=== PATIENT | female | born 2005 | race Two or more races ===

== ENCOUNTER 2025-08-22 19:41 | Inpatient (IN) | payer MEDICAID, OTHER ==
[~2025-08-22] VITALS: Ht 147.3 cm; Wt 60.6 kg
[2025-08-22] MEDS: ONDANSETRON HCL 4 MG/2 ML VIAL IV ONE (20:34)
[2025-08-22 20:36] LABS: Base Excess -10.0 mmol/L (-2.0-3.0)
[2025-08-22] MEDS: SODIUM CHLORIDE 0.9% 1,000 ML IV ONE ×2 (20:39→22:56)
[2025-08-22 20:57] LABS: Hematocrit 49.7 % (36.0-46.0); Hemoglobin 16.3 g/dL (12.2-16.2); Mean Corpuscular Hemoglobin 28.9 pg (28.0-32.0); Mean Corpuscular Volume 88.2 fL (80.0-100.0); Nucleated Red Blood Cells % 0.1 %
[2025-08-22 21:44] VITALS: PULSE 141; RESP 16; O2SAT 98
[2025-08-22 22:13] LABS: Anion Gap 18 (5-15); BUN/Creatinine Ratio 11.1 (10.0-20.0); Calcium 9.8 mg/dL (8.7-10.4); Chloride 106 mmol/L (98-107); Magnesium 1.9 mg/dL (1.6-2.6); Potassium 4.2 mmol/L (3.5-5.1); Sodium 137 mmol/L (136-145)
[2025-08-22 22:18] LABS: Urine Budding Yeast OCCASIONAL /hpf (None Seen); Urine Protein, UAD TRACE (Negative)
[2025-08-22 22:18] LABS: Alanine Aminotransferase < 9 U/L (7-40); Albumin 5.0 g/dL (3.2-4.8); Alkaline Phosphatase 125 U/L (46-116); Bilirubin, Total 0.2 mg/dL (0.2-1.0); Blood Urea Nitrogen 8 mg/dL (9-23); Carbon Dioxide 13 mmol/L (20-31); Glucose 345 mg/dL (74-106); Total Protein 9.1 g/dL (5.7-8.2)
[2025-08-22] MEDS: SODIUM CHLORIDE 0.9% 1,000 ML IV SCH (22:30)
[2025-08-22] MEDS ORDERED: DEXTROSE (50%) 50ML SYRG IV PRN (22:30)
--- NOTE | 2025-08-22 22:30 | ED.PDOC ---
History of Present Illness HPI Comments 19 F with history of insulin dependent DM presents via EMS with N/V elevated blood sugars. She is on SSI. She reports CP. She reports she has not been completely compliant with insulin. BGC 310 with EMS. REVIEW OF SYSTEMS: General: No fever, no chills, or fatigue HEENT: No sore throat, no earache, no congestion, no neck pain. Cardiac: + chest pain. No palpitations. Lungs: No shortness of breath, no cough. GI: + nausea, + vomiting, no diarrhea, no constipation, + abdominal pain : No dysuria, frequency, or urgency. No hematuria. Musculoskeletal: No joint pain , no joint swelling, no extremity edema. Skin: No rash, no itching. Neuro: No headache, no dizziness, no weakness PHYSICAL EXAM: General: Awake, alert , ill-appearing Skin: Skin in warm, dry and intact. Appropriate color for ethnicity. HEENT: The head is normocephalic and atraumatic. Conjunctivae are clear without exudates or hemorrhage. Sclera is non-icteric. EOM are intact. No signs of nystagmus. Eyelids are normal in appearance without swelling or lesions. Oral mucosa is pink and moist Neck: The neck is supple with normal range of motion. No JVD. Cardiac: Heart rate and rhythm are normal. No murmurs, gallops, or rubs are auscultated. Respiratory: No signs of respiratory distress. Lung sounds are clear in all lobes bilaterally without rales, rhonchi, or wheezes. Abdominal: Abdomen is soft, generally-tender, without distention, guarding or rigidity. Bowel sounds are present and normoactive in all four quadrants. Extremities: Upper and lower extremities are atraumatic in appearance without deformity or edema. Neurological: The patient is awake, alert and oriented to person, place, and time with normal speech. Speech is clear. There is no facial asymmetry. Chief Complaint: Hyperglycemia Time Seen by MD: 19:48 Allergies: Coded Allergies: NO KNOWN ALLERGIES (Unverified , 08/22/25) Mode of Arrival: EMS Was a procedure done? Was a procedure done?: No EKG EKG : Comments Sinus tachycardia, rate 139, nonspecific ST changes. No STEMI. Differential Dx Considerations may include: DKA, hyperglycemia, HHS, appendicitis, biliary disease, diverticulitis, gastritis, gastroenteritis, hepatitis, hernia, inflammatory bowel disease, pancr eatitis, peptic ulcer disease, urinary tract infection, ureteral colic, constipation, GERD, irritable syndrome, abdominal wall pain, nonspecific abdominal pain, nephrolithiasis. X-Ray, Labs, Meds, VS Vital Signs Date Time Temp Pulse Resp B/P (MAP) Pulse Ox O2 Delivery O2 Flow Rate FiO2 08/22/25 23:00 132 17 151/98 (115) 97 08/22/25 22:52 134 14 150/103 08/22/25 21:44 141 16 98 Room Air* 0 21 08/22/25 21:01 141 16 141/98 (112) 98 08/22/25 19:54 98.3 120 18 131/95 100 98.3 08/22/25 19:44 139 Lab Test 08/22/25 21:35 08/22/25 21:14 08/22/25 20:32 08/22/25 20:31 Range/Units Sodium Level 137 136-145 mmol/L Potassium Level 4.2 3.5-5.1 mmol/L Chloride Level 106 98-107 mmol/L Carbon Dioxide Level 13 L 20-31 mmol/L Anion Gap 18 H 5-15 Blood Urea Nitrogen 8 L 9-23 mg/dL Creatinine 0.72 0.550-1.02 mg/dL Glomerular Filtration Rate Calc 123 >90 mL/min BUN/Creatinine Ratio 11.1 10.0-20.0 Serum Glucose 345 H 74-106 mg/dL Calcium Level 9.8 8.7-10.4 mg/dL Magnesium Level 1.9 1.6-2.6 mg/dL Total Bilirubin 0.2 0.2-1.0 mg/dL Aspartate Amino Transferase (AST) 12 L 13-40 U/L Alanine Aminotransferase (ALT) < 9 7-40 U/L Alkaline Phosphatase 125 H 46-116 U/L Total Protein 9.1 H 5.7-8.2 g/dL Albumin 5.0 H 3.2-4.8 g/dL Urine Color Light-yellow Yellow Urine Clarity Clear Clear Urine pH 5.0 5.0-9.0 Urine Specific [place] 1.034 1.001-1.035 Urine Protein Trace H Negative Urine Ketones 4+ H Negative Urine Blood Negative Negative /uL Urine Nitrite Negative Negative Urine Bilirubin Negative Negative Urine Urobilinogen Normal Negative mg/dL Urine Leukocyte Esterase Negative Negative /uL Urine RBC 2 0 - 4 /hpf Urine Microscopic WBC 1 0-5 /HPF Urine Squamous Epithelial Cells Mod <5 /hpf Urine Bacteria None seen None Seen /hpf Urine Mucus Few None Seen Urine Yeast (Budding) Occasional None Seen /hpf Urine Glucose 4+ H Normal mg/dL Urine Test Negative Negative Blood Gas Specimen Type Arterial Blood Gas Sample Site Right brachial Blood Gas Patient Temperature 37.0 Arterial Blood Date Drawn [id number] Arterial Blood pH 7.321 L 7.350-7.450 Arterial Blood Partial Pressure CO2 28.5 L 32.0-45.0 mmHg Arterial Blood Partial Pressure O2 92.1 83.0-108.0 mmHg Arterial Blood HCO3 14.4 L 21.0-28.0 mmol/L Arterial Blood Oxygen Saturation 96.5 94.0-98.0 % Arterial Blood Base Excess -10.0 L -2.0-3.0 mmol/L Arterial Blood Oxyhemoglobin 95.2 94.0-98.0 % Arterial Blood Carboxyhemoglobin 0.6 0.5-1.5 % Arterial Blood Methemoglobin 0.7 0.0-1.5 % Luke Test N/a Blood Gas Total Hemoglobin 15.80 12.0-16.0 g/dL Blood Gas Modality Room air FiO2 % 21.0 White Blood Count 8.2 4.4-10.8 10^3/uL Red Blood Count 5.64 H 4.0-5.20 10^6/uL Hemoglobin 16.3 H 12.2-16.2 g/dL Hematocrit 49.7 H 36.0-46.0 % Mean Corpuscular Volume 88.2 80.0-100.0 fL Mean Corpuscular Hemoglobin 28.9 28.0-32.0 pg Mean Corpuscular Hemoglobin Concent 32.7 32.0-36.0 g/dL Red Cell Distribution Width 13.4 11.8-14.3 % Platelet Count 426 140-450 10^3/uL Mean Platelet Volume 8.7 6.9-10.8 fL Neutrophils (%) (Auto) 78.9 37.0-80.0 % Lymphocytes (%) (Auto) 17.1 10.0-50.0 % Monocytes (%) (Auto) 3.5 0.0-12.0 % Eosinophils (%) (Auto) 0.1 0.0-7.0 % Basophils (%) (Auto) 0.4 0.0-2.0 % Neutrophils # (Auto) 6.4 1.6-8.6 10 ^3/uL Lymphocytes # (Auto) 1.4 0.4-5.4 10 ^3/uL Monocytes # (Auto) 0.3 0-1.3 10 ^3/uL Eosinophils # (Auto) 0 0-0.8 10 ^3/uL Basophils # (Auto) 0 0-0.2 10 ^3/uL Nucleated Red Blood Cells 0.1 % Beta-Hydroxybutyric Acid Pending Current Medications Medications (Trade) Dose Ordered Sig/Kashif Route Start Time Stop Time Status Last Admin Ondansetron HCl (Zofran) 4 mg ONCE ONCE IV 08/22/25 20:15 08/22/25 20:17 DC 08/22/25 20:34 Sodium Chloride 1,000 ml @ 1,000 mls/hr Q1H ONCE IV 08/22/25 20:15 08/22/25 21:14 DC 08/22/25 20:39 Sodium Chloride 1,000 ml @ 1,000 mls/hr Q1H ONCE IV 08/22/25 22:00 08/22/25 22:59 DC 08/22/25 22:56 Hydromorphone HCl (Dilaudid Injection) 0.5 mg ONCE ONCE IV 08/22/25 22:00 08/22/25 22:01 DC 08/22/25 22:52 Sodium Chloride 1,000 ml @ 500 mls/hr Q2H IV 08/22/25 22:30 08/23/25 02:29 08/23/25 00:36 Insulin Human (Reg)/Sodium Chloride 100 ml @ 0.5 mls/hr Q24H IV 08/22/25 22:30 08/22/25 22:53 Diagnostic Test (Pha) (Accu-Chek Comfort Curve T) 1 strip Q90MIN 08/22/25 22:30 08/23/25 00:07 Insulin Glargine (Lantus) 15 units ONCE ONCE SC 08/22/25 22:30 08/22/25 22:38 DC 08/22/25 22:53 Time of 1ST Reevaluation: 22:29 Reevaluation 1ST: Unchanged Patient Education/Counseling: Need For Follow Up Family Education/Counseling: No Family Present SEPSIS Sepsis Screen Date sepsis recognized/suspect: Aug 22, 2025 Time Sepsis recognized/suspect: 1944 Recent Procedure: No On Antibiotic Therapy: No Respiratory Rate >20: No Heart Rate >90: Yes Temp<36 C (96.8 F) or >38.3 C: No SBP <90 or MAP <65 mmHG: No New Acute Mental Status Change: No Is the patient on CPAP, BIPAP,: No Physician Orders Electrocardigram (08/22/25 19:49) Abg W/ Co-Ox (08/22/25 20:15) Saline Lock (08/22/25 20:15) Beta-Hydroxybutyrate (08/22/25 20:15) Insulin Drip Protocol (08/22/25 ) Sodium Chloride 0.9% (08/22/25 22:30) Sodium Chloride 0.9% (08/23/25 02:30) Sodium Chloride 0.9% (08/23/25 04:30) Insulin Drip 100 Unit/100ml (Myxredlin 1 (08/22/25 22:30) Dextrose 50% Syringe (08/22/25 22:30) Glucose Blood (Accu-Chek Comfort Curve T (08/22/25 22:30) Basic Metabolic Panel (08/23/25 10:27) Basic Metabolic Panel (08/23/25 16:27) Neurological Assessment (08/22/25 22:27) Vs/Hemodynamics .PER UNIT PROTOCOL (08/22/25 22:27) Vital Signs Date Time Temp Pulse Resp B/P (MAP) Pulse Ox O2 Delivery O2 Flow Rate FiO2 08/22/25 23:00 132 17 151/98 (115) 97 08/22/25 22:52 134 14 150/103 08/22/25 21:44 141 16 98 Room Air* 0 21 08/22/25 21:01 141 16 141/98 (112) 98 08/22/25 19:54 98.3 120 18 131/95 100 98.3 08/22/25 19:44 139 Laboratory Tests Test 08/22/25 20:31 White Blood Count 8.2 10^3/uL (4.4-10.8) Medications Medications Dose Ordered Sig/Kashif Route Start Time Stop Time Status Last Admin Dose Admin Diagnostic Test (Pha) 1 strip Q90MIN 08/22/25 22:30 08/23/25 00:07 Hydromorphone HCl 0.5 mg ONCE ONCE IV 08/22/25 22:00 08/22/25 22:01 DC 08/22/25 22:52 Insulin Glargine 15 units ONCE ONCE SC 08/22/25 22:30 08/22/25 22:38 DC 08/22/25 22:53 Insulin Human (Reg)/Sodium Chloride 100 ml @ 0.5 mls/hr Q24H IV 08/22/25 22:30 08/22/25 22:53 Ondansetron HCl 4 mg ONCE ONCE IV 08/22/25 20:15 08/22/25 20:17 DC 08/22/25 20:34 Sodium Chloride 1,000 ml @ 500 mls/hr Q2H IV 08/22/25 22:30 08/23/25 02:29 08/23/25 00:36 Sodium Chloride 1,000 ml @ 1,000 mls/hr Q1H ONCE IV 08/22/25 20:15 08/22/25 21:14 DC 08/22/25 20:39 Sodium Chloride 1,000 ml @ 1,000 mls/hr Q1H ONCE IV 08/22/25 22:00 08/22/25 22:59 DC 08/22/25 22:56 Departure 1 Departure Time of Disposition: 22:30 Impression: Primary Impression: DKA (diabetic ketoacidosis) Disposition: ADMITTED INPATIENT Condition: Serious Comments MDM: 19-year-old female with DKA. Patient admitted to hospitalist service for further treatment, evaluation and monitoring. Extensive evaluation was performed in attempt to identify or rule out: (See differential diagnosis section) The following tests were ordered, and results were reviewed by me and discussed with patient: (See diagnostic results section) The following test were independently interpreted by me: N/A I reviewed and agreed with the following test results read by other providers: N/A I reviewed the following notes from the pt's past medical encounters: N/A Additional information was gathered from interviewing the following independent historians: EMS personnel Addressed an acute or chronic illness that poses a threat to life or bodily function: DKA Decision regarding hospitalization or escalation of hospital level of care: Risk and benefits of admission for further treatment of patient's condition was considered. Due to patient's current clinical condition, high risk of decline and poor outcome if discharged and need for further inpatient management and monitoring, patient will be admitted to the hospital. Drug therapy requiring intensive monitoring for toxicity: IV insulin Parenteral controlled substances: IV hydromorphone Critical Care Note Critical Care Time?: Yes (35 min-critical care time only) Critical care comment: Due to a high probability of clinically significant, life threatening deterioration, the patient required my highest level of preparedness to intervene emergently and I personally spent this critical care time directly and personally managing the patient. This critical care time included obtaining a history; examining the patient; pulse oximetry; ordering and review of studies; arranging urgent treatment with development of a management plan; evaluation of patient's response to treatment; frequent reassessment; and, discussions with other providers. This critical care time was performed to assess and manage the high probability of imminent, life-threatening deterioration that could result in multi-organ failure. It was exclusive of separately billable procedures and treating other patients and teaching time. Please see my other sections and the rest of the note for further information on patient assessment and treatment. Stability Stability form required: No Heart Score Heart Score: Heart Score Response (Comments) Value History N/A 0 EKG N/A 0 Age N/A 0 Risk Factors N/A 0 Troponin N/A 0 Total 0 LIAM ARAUZ MD Aug 22, 2025 22:30
[2025-08-22] MEDS: ACCU-CHEK COMFORT CURVE STRIP VI SCH (22:50)
[2025-08-22] MEDS: HYDROmorphone HCL 2 MG/ML VL/or syr IV ONE (22:52)
[2025-08-22] MEDS: INSULIN DRIP 100 UNIT/100ML 100 ML IV SCH (22:53)
[2025-08-22] MEDS: INSULIN LANTUS (GLARGINE) 1 /0.01ml (100units/ml) SC ONE (22:53)
[2025-08-23] MEDS ORDERED: MORPHINE SULFATE INJ 2 MG/ml SYRG IV PRN
[2025-08-23] MEDS ORDERED: NITROGLYCERIN 0.4 MG SL TAB SL PRN
[2025-08-23] MEDS: KETOROLAC TROMETH 30 MG/ML 1ML VIAL IV PRN ×2 (01:59→13:39)
[2025-08-23] MEDS: ONDANSETRON HCL 4 MG/2 ML VIAL IV PRN (02:00)
[2025-08-23] MEDS: SODIUM CHLORIDE 0.9% 1,000 ML IV SCH ×3 (02:30→14:36)
--- NOTE | 2025-08-23 04:07 | DVHHP2 ---
History of Present Illness Reason for Visit: Nausea and vomiting History of Present Illness 19-year-old female presents for evaluation of nausea and vomiting. Patient endorses a one day history of nausea and vomiting. Currently denies abdominal pain. She states her blood sugar has been running high in the 300s. She reports being compliant with her insulin regimen. No fever or chills. No cardiac or respiratory complaints. Past Medical History Diabetes mellitus Past Surgical History Denies Family History Noncontributory Smoke: No ALCOHOL: none Drugs: None Lives: with Family Review of Systems Review of Systems Review of systems are currently negative otherwise addressed in HPI. Allergies: Coded Allergies: NO KNOWN ALLERGIES (Unverified , 08/22/25) Medications Current Medications Medications Dose Ordered Sig/Kashif Route Start Time Stop Time Status Last Admin Dose Admin Sodium Chloride 1,000 ml @ 250 mls/hr Q4H IV 08/23/25 02:30 08/23/25 04:29 08/23/25 02:30 250 MLS/HR Sodium Chloride 1,000 ml @ 150 mls/hr Q6H40M IV 08/23/25 04:30 Insulin Human (Reg)/Sodium Chloride 100 ml @ 0.5 mls/hr Q24H IV 08/22/25 22:30 08/22/25 22:53 4 MLS/HR Dextrose 50 ml UD PRN IV 08/22/25 22:30 Diagnostic Test (Pha) 1 strip Q90MIN 08/22/25 22:30 08/23/25 03:06 1 STRIP Ondansetron HCl 4 mg Q4HP PRN IV 08/23/25 00:00 08/23/25 02:00 4 MG Nitroglycerin 0.4 mg Q5MINP PRN SL 08/23/25 00:00 Morphine Sulfate 2 mg Q30M PRN IV 08/23/25 00:00 Ketorolac Tromethamine 15 mg Q6HPRN PRN IV 08/23/25 00:00 08/28/25 00:00 08/23/25 01:59 15 MG Exam Vital Signs Vital Signs Date Time Temp Pulse Resp B/P (MAP) Pulse Ox O2 Delivery O2 Flow Rate FiO2 08/23/25 03:00 138 15 134/90 (105) 95 08/22/25 21:44 Room Air* 0 21 08/22/25 19:54 98.3 98.3 Exam Gen: 19-year-old female in mild distress Skin: Warm, dry, normal color and texture, no rash. HEENT: Normocephalic atraumatic, mucous membranes moist and pink. Neck: Cervical and supraclavicular nodes normal without enlargement, trachea is midline, thyroid gland is normal without masses. Pulmonary: Clear to auscultation and percussion bilaterally. Cardiac: Regular rate and rhythm. No murmur Abdomen: Soft, nontender, nondistended, bowel sounds present all 4 quadrants, no guarding, no rigidity, no organomegaly. Extremities: No cyanosis, clubbing, no edema Neuro: Cranial nerves II through XII grossly intact, normal affect and speech, no focal motor deficits. Labs/Xrays Labs Test 08/23/25 00:07 08/22/25 21:35 08/22/25 21:14 08/22/25 20:32 Range/Units Lactic Acid Level 0.5 0.4-2.0 mmol/L Sodium Level 137 136-145 mmol/L Potassium Level 4.2 3.5-5.1 mmol/L Chloride Level 106 98-107 mmol/L Carbon Dioxide Level 13 L 20-31 mmol/L Anion Gap 18 H 5-15 Blood Urea Nitrogen 8 L 9-23 mg/dL Creatinine 0.72 0.550-1.02 mg/dL Glomerular Filtration Rate Calc 123 >90 mL/min BUN/Creatinine Ratio 11.1 10.0-20.0 Serum Glucose 345 H 74-106 mg/dL Calcium Level 9.8 8.7-10.4 mg/dL Magnesium Level 1.9 1.6-2.6 mg/dL Total Bilirubin 0.2 0.2-1.0 mg/dL Aspartate Amino Transferase (AST) 12 L 13-40 U/L Alanine Aminotransferase (ALT) < 9 7-40 U/L Alkaline Phosphatase 125 H 46-116 U/L Total Protein 9.1 H 5.7-8.2 g/dL Albumin 5.0 H 3.2-4.8 g/dL Urine Color Light-yellow Yellow Urine Clarity Clear Clear Urine pH 5.0 5.0-9.0 Urine Specific [place] 1.034 1.001-1.035 Urine Protein Trace H Negative Urine Ketones 4+ H Negative Urine Blood Negative Negative /uL Urine Nitrite Negative Negative Urine Bilirubin Negative Negative Urine Urobilinogen Normal Negative mg/dL Urine Leukocyte Esterase Negative Negative /uL Urine RBC 2 0 - 4 /hpf Urine Microscopic WBC 1 0-5 /HPF Urine Squamous Epithelial Cells Mod <5 /hpf Urine Bacteria None seen None Seen /hpf Urine Mucus Few None Seen Urine Yeast (Budding) Occasional None Seen /hpf Urine Glucose 4+ H Normal mg/dL Urine Test Negative Negative Blood Gas Specimen Type Arterial Blood Gas Sample Site Right brachial Blood Gas Patient Temperature 37.0 Arterial Blood Date Drawn [id number] Arterial Blood pH 7.321 L 7.350-7.450 Arterial Blood Partial Pressure CO2 28.5 L 32.0-45.0 mmHg Arterial Blood Partial Pressure O2 92.1 83.0-108.0 mmHg Arterial Blood HCO3 14.4 L 21.0-28.0 mmol/L Arterial Blood Oxygen Saturation 96.5 94.0-98.0 % Arterial Blood Base Excess -10.0 L -2.0-3.0 mmol/L Arterial Blood Oxyhemoglobin 95.2 94.0-98.0 % Arterial Blood Carboxyhemoglobin 0.6 0.5-1.5 % Arterial Blood Methemoglobin 0.7 0.0-1.5 % Luke Test N/a Blood Gas Total Hemoglobin 15.80 12.0-16.0 g/dL Blood Gas Modality Room air FiO2 % 21.0 Test 08/22/25 20:31 Range/Units White Blood Count 8.2 4.4-10.8 10^3/uL Red Blood Count 5.64 H 4.0-5.20 10^6/uL Hemoglobin 16.3 H 12.2-16.2 g/dL Hematocrit 49.7 H 36.0-46.0 % Mean Corpuscular Volume 88.2 80.0-100.0 fL Mean Corpuscular Hemoglobin 28.9 28.0-32.0 pg Mean Corpuscular Hemoglobin Concent 32.7 32.0-36.0 g/dL Red Cell Distribution Width 13.4 11.8-14.3 % Platelet Count 426 140-450 10^3/uL Mean Platelet Volume 8.7 6.9-10.8 fL Neutrophils (%) (Auto) 78.9 37.0-80.0 % Lymphocytes (%) (Auto) 17.1 10.0-50.0 % Monocytes (%) (Auto) 3.5 0.0-12.0 % Eosinophils (%) (Auto) 0.1 0.0-7.0 % Basophils (%) (Auto) 0.4 0.0-2.0 % Neutrophils # (Auto) 6.4 1.6-8.6 10 ^3/uL Lymphocytes # (Auto) 1.4 0.4-5.4 10 ^3/uL Monocytes # (Auto) 0.3 0-1.3 10 ^3/uL Eosinophils # (Auto) 0 0-0.8 10 ^3/uL Basophils # (Auto) 0 0-0.2 10 ^3/uL Nucleated Red Blood Cells 0.1 % SEPSIS Sepsis Screen Date sepsis recognized/suspect: Aug 23, 2025 Time Sepsis recognized/suspect: 148 Recent Procedure: No On Antibiotic Therapy: No Respiratory Rate >20: No Heart Rate >90: Yes Temp<36 C (96.8 F) or >38.3 C: No SBP <90 or MAP <65 mmHG: No New Acute Mental Status Change: No Is the patient on CPAP, BIPAP,: No Physician Orders Abg W/ Co-Ox (08/22/25 20:15) Saline Lock (08/22/25 20:15) Beta-Hydroxybutyrate (08/22/25 20:15) Insulin Drip Protocol (08/22/25 ) Sodium Chloride 0.9% (08/23/25 02:30) Sodium Chloride 0.9% (08/23/25 04:30) Insulin Drip 100 Unit/100ml (Myxredlin 1 (08/22/25 22:30) Dextrose 50% Syringe (08/22/25 22:30) Glucose Blood (Accu-Chek Comfort Curve T (08/22/25 22:30) Basic Metabolic Panel (08/23/25 10:27) Basic Metabolic Panel (08/23/25 16:27) Neurological Assessment (08/22/25 22:27) Vs/Hemodynamics .PER UNIT PROTOCOL (08/22/25 22:27) Admit (08/22/25 23:56) Ondansetron Hcl (Zofran) (08/23/25 00:00) Complete Blood Count (08/23/25 04:00) Comprehensive Metabolic Panel (08/23/25 04:00) Npo (Nothing By Mouth) Diet (08/23/25 Breakfast) Condition: Critical (08/22/25 23:56) Bedrest With Bathroom Privileg (08/22/25 23:56) Nitroglycerin Sublingual (Ntrostat Subli (08/23/25 00:00) Morphine Sulfate Injection (08/23/25 00:00) Stat Ekg For Chest Pain (08/22/25 23:56) Notify Of Changes From Base (08/22/25 23:56) Audit Associate For 24 Hours (08/22/25 23:56) Emergency Dysrhythmia Protocol (08/22/25 23:56) Rhythm Strips Once Every Shift (08/22/25 23:56) Oxygen By Nasal Cannula (08/22/25 23:56) Ketorolac Injection (Toradol Injection) (08/23/25 00:00) Beta-Hydroxybutyrate (08/23/25 04:02) Vital Signs Date Time Temp Pulse Resp B/P (MAP) Pulse Ox O2 Delivery O2 Flow Rate FiO2 08/23/25 03:00 138 15 134/90 (105) 95 08/23/25 02:00 133 16 148/93 (111) 97 08/23/25 01:00 133 13 144/99 (114) 99 08/23/25 00:00 138 15 149/94 (112) 97 08/22/25 23:22 131 16 137/89 08/22/25 23:00 132 17 151/98 (115) 97 08/22/25 22:52 134 14 150/103 08/22/25 21:44 141 16 98 Room Air* 0 21 08/22/25 21:01 141 16 141/98 (112) 98 Laboratory Tests Test 08/22/25 20:31 08/23/25 00:07 White Blood Count 8.2 10^3/uL (4.4-10.8) Lactic Acid Level 0.5 mmol/L (0.4-2.0) Medications Medications Dose Ordered Sig/Kashif Route Start Time Stop Time Status Last Admin Dose Admin Diagnostic Test (Pha) 1 strip Q90MIN 08/22/25 22:30 08/23/25 03:06 1 STRIP Hydromorphone HCl 0.5 mg ONCE ONCE IV 08/22/25 22:00 08/22/25 22:01 DC 08/22/25 22:52 0.5 MG Insulin Glargine 15 units ONCE ONCE SC 08/22/25 22:30 08/22/25 22:38 DC 08/22/25 22:53 15 UNITS Insulin Human (Reg)/Sodium Chloride 100 ml @ 0.5 mls/hr Q24H IV 08/22/25 22:30 08/22/25 22:53 4 MLS/HR Ketorolac Tromethamine 15 mg Q6HPRN PRN IV 08/23/25 00:00 08/28/25 00:00 08/23/25 01:59 15 MG Ondansetron HCl 4 mg ONCE ONCE IV 08/22/25 20:15 08/22/25 20:17 DC 08/22/25 20:34 4 MG Ondansetron HCl 4 mg Q4HP PRN IV 08/23/25 00:00 08/23/25 02:00 4 MG Sodium Chloride 1,000 ml @ 250 mls/hr Q4H IV 08/23/25 02:30 08/23/25 04:29 08/23/25 02:30 250 MLS/HR Sodium Chloride 1,000 ml @ 500 mls/hr Q2H IV 08/22/25 22:30 08/23/25 02:29 DC 08/23/25 00:36 500 MLS/HR Sodium Chloride 1,000 ml @ 1,000 mls/hr Q1H ONCE IV 08/22/25 20:15 08/22/25 21:14 DC 08/22/25 20:39 1,000 MLS/HR Sodium Chloride 1,000 ml @ 1,000 mls/hr Q1H ONCE IV 08/22/25 22:00 08/22/25 22:59 DC 08/22/25 22:56 1,000 MLS/HR Assessment/Plan Assessment/Plan Assessment Diabetic ketoacidosis Dehydration Plan Admit the patient to [facility] to the hospitalist DKA protocol Continue treatment per orders. Total critical care time excluding procedures performed this 50 minutes Plan discussed with: Patient My Orders Orders - HERBIE STERLING Procedure Category Date Status Time Admit ADMIT 08/22/25 Transmitted 23:56 Ondansetron Hcl PHA 08/23/25 In Process (Yuliafrprerna) 00:00 Complete Blood Count LAB 08/23/25 Logged 04:00 Comprehensive LAB 08/23/25 Logged Metabolic Panel 04:00 Npo (Nothing By DIET 08/23/25 Transmitted Mouth) Diet Breakfast Condition: Critical [facility] 08/22/25 In Process 23:56 Bedrest With Bathroom [facility] 08/22/25 In Process Privileg 23:56 Nitroglycerin [facility] 08/23/25 In Process Sublingual (Ntrostat 00:00 Morphine Sulfate PHA 08/23/25 In Process Injection 00:00 Stat Ekg For Chest [facility] 08/22/25 In Process Pain 23:56 Notify Of Changes [facility] 08/22/25 In Process From Base 23:56 Audit Associate For [facility] 08/22/25 In Process 24 Hours 23:56 Emergency Dysrhythmia [facility] 08/22/25 In Process Protocol 23:56 Rhythm Strips Once [facility] 08/22/25 In Process Every Shift 23:56 Oxygen By Nasal RT 08/22/25 Transmitted Cannula 23:56 Ketorolac Injection [facility] 08/23/25 In Process (Toradol Injection) 00:00 Beta-Hydroxybutyrate LAB 08/23/25 Transmitted 04:02 Date of Service: Aug 22, 2025 Billing Provider: HERBIE STERLING Common Visit Codes: [id number] CARE 30-74 MIN HERBIE STERLING Aug 23, 2025 04:06
[2025-08-23 04:30] VITALS: PULSE 133; RESP 19; O2SAT 98
[2025-08-23 05:05] LABS: Hematocrit 40.4 % (36.0-46.0); Hemoglobin 13.4 g/dL (12.2-16.2); Mean Corpuscular Hemoglobin 28.9 pg (28.0-32.0); Mean Corpuscular Volume 87.2 fL (80.0-100.0); Nucleated Red Blood Cells % 0.1 %
[2025-08-23 05:18] LABS: Alanine Aminotransferase 12 U/L (7-40); Albumin 4.5 g/dL (3.2-4.8); Alkaline Phosphatase 107 U/L (46-116); Anion Gap 18 (5-15); BUN/Creatinine Ratio 13.7 (10.0-20.0); Calcium 9.3 mg/dL (8.7-10.4); Potassium 4.3 mmol/L (3.5-5.1); Sodium 140 mmol/L (136-145); Total Protein 7.8 g/dL (5.7-8.2)
[2025-08-23 05:19] LABS: Bilirubin, Total 0.2 mg/dL (0.2-1.0); Blood Urea Nitrogen 7 mg/dL (9-23); Carbon Dioxide 12 mmol/L (20-31); Chloride 110 mmol/L (98-107); Glucose 246 mg/dL (74-106)
[2025-08-23 08:00] VITALS: PULSE 129; RESP 14; O2SAT 99
[2025-08-23] MEDS: MORPHINE SULFATE INJ 2 MG/ml SYRG IV ONE ×2 (09:06→17:39)
[2025-08-23] MEDS: SODIUM CHLORIDE 0.9% 1,000 ML IV ONE ×2 (10:05→21:00)
[2025-08-23] MEDS: INSULIN LANTUS (GLARGINE) 1 /0.01ml (100units/ml) SC ONE (10:12)
--- NOTE | 2025-08-23 10:12 | DVHPN2 ---
Assessment/Plan Assessment/Plan progress note 19 yo F with type 1 DM on treciba and Humalog admitted for DKA. patient with N/V, denies travels, denies eating anything out of the ordinary. also has chest pain reproducible to touch and abdominal epigastric pain. physical exam aox4, drowsy clear breath sounds s1 s2 tachycardic chest tender to palpation abdomen soft, epigastric tenderness no LE edema labs, ekg imaging reviewed assessment and plan DKA type 1 DM chest pain likely costochondritis N/V w abdominal pain likely viral or noninfectious gastroenteritis dc insulin drip IV bolus lantus 30 BID lispro w sliding scale telemetry follow urine culture stool wbc Toradol diet clear dvt ppx hold full code critical care time 45 minutes Plan discussed with: Patient My Orders Orders - GISELL MEYER MD Procedure Category Date Status Time Sodium Chloride 0.9% PHA 08/23/25 In Process 10:00 Insulin Lantus PHA 08/23/25 Logged (Glargine) (Lantus) 22:00 Insulin Lispro PHA 08/23/25 Logged (Human) (Humalog) 11:30 Insulin Lispro PHA 08/23/25 Logged (Human) (Humalog) 11:30 Clear Liq Diet DIET 08/23/25 Transmitted Lunch Ketorolac Injection PHA 08/23/25 Logged (Toradol Injection) 10:15 Pantoprazole PHA 08/24/25 Logged (Protonix) 10:00 Alum & Mag PHA 08/23/25 Transmitted Hydrox-Simethicone 12:00 Transfer Orders XFER 08/23/25 Transmitted 10:06 Stool Wbc LAB 08/23/25 Verified 10:10 NS PHA 08/23/25 Verified 10:15 Basic Metabolic Panel LAB 08/24/25 Verified 04:00 Complete Blood Count LAB 08/24/25 Verified 04:00 Magnesium LAB 08/24/25 Verified 04:00 Phosphorus LAB 08/24/25 Verified 04:00 Lactic Acid W/ Reflex LAB 08/24/25 Verified Order 04:00 Date of Service: Aug 23, 2025 Billing Provider: GISELL MEYER MD Common Visit Codes: [id number] CARE 30-74 MIN GISELL MEYER MD Aug 23, 2025 10:12
--- NOTE | 2025-08-23 10:44 | ECG ---
[facility] Test Date: 2025-08-22 Test Time: 19:44:39 Pat Name: MARINA ETIENNE Department: [facility] ED Patient ID: [facility]-[id number] Room: 0201T Gender: F Pcts: frankie : 2005 Requested By: LIAM ARAUZ Order Number: [id number] Reading MD: Benjamin Sebastian Measurements Intervals [place] Rate: 139 P: 79 NC: 120 QRS: 87 QRSD: 84 T: 15 QT: 308 QTc: 469 Interpretive Statements Sinus tachycardia Paired ventricular premature complexes ST elev, probable normal early repol pattern Baseline wander in lead(s) V1,V3 Electronically Signed On 08-29-2025 13:18:21 PST by Benjamin Sebastian Please click the below link to view image of tracing.
[2025-08-23 11:24] LABS: Potassium 3.8 mmol/L (3.5-5.1); Sodium 140 mmol/L (136-145)
[2025-08-23 11:25] LABS: Anion Gap 18 (5-15)
[2025-08-23 11:26] LABS: Calcium 8.9 mg/dL (8.7-10.4); Carbon Dioxide 13 mmol/L (20-31); Chloride 109 mmol/L (98-107)
[2025-08-23 11:32] LABS: BUN/Creatinine Ratio 8.8 (10.0-20.0); Blood Urea Nitrogen < 5 mg/dL (9-23); Glucose 252 mg/dL (74-106)
[2025-08-23] MEDS: INSULIN LISPRO (HUMAN) 100 UNITS/ML ML SC SCH ×2 (11:54→12:12)
[2025-08-23] MEDS: MAALOX PLUS or MAALOX 30 ML PO SCH (12:13)
[2025-08-23 16:32] VITALS: BP 152/90; PULSE 110; PULSE 120; RESP 14; RESP 18; TEMP 98.1; O2SAT 96
[2025-08-23 16:50] VITALS: BP 152/90; PULSE 120; RESP 14; TEMP 98.1; O2SAT 96
[2025-08-23] MEDS ORDERED: ACETAMINOPHEN 325 MG TAB PO PRN (18:15)
[2025-08-23 18:33] LABS: Chloride 106 mmol/L (98-107); Potassium 4.0 mmol/L (3.5-5.1); Sodium 140 mmol/L (136-145)
[2025-08-23 18:34] LABS: Anion Gap 16 (5-15); Calcium 9.7 mg/dL (8.7-10.4)
[2025-08-23 18:39] LABS: BUN/Creatinine Ratio 8.8 (10.0-20.0)
[2025-08-23 18:47] LABS: Blood Urea Nitrogen 6 mg/dL (9-23); Carbon Dioxide 18 mmol/L (20-31); Glucose 249 mg/dL (74-106)
[2025-08-23] MEDS ORDERED: HYDROMORPHONE HCL 1 MG/ML INJ IV PRN (19:15)
[2025-08-23 20:00] VITALS: PULSE 121
[2025-08-23 21:00] VITALS: BP 116/79; PULSE 114; RESP 19; TEMP 99.2; O2SAT 99
[2025-08-23] MEDS: INSULIN LANTUS (GLARGINE) 1 /0.01ml (100units/ml) SC SCH (22:00)
[2025-08-24] VITALS (9 sets, daily range): BP systolic 116–167; BP diastolic 80–116; PULSE 89–116; RESP 14–20; TEMP 98–99.3; O2SAT 98–100
[2025-08-24] MEDS: HYDROMORPHONE HCL 1 MG/ML INJ IV PRN (04:39)
[2025-08-24] MEDS: LABETALOL HCL 20 MG/4 ML VL IV ONE (05:16)
[2025-08-24 07:22] LABS: Hematocrit 37.4 % (36.0-46.0); Hemoglobin 12.6 g/dL (12.2-16.2); Mean Corpuscular Hemoglobin 29.1 pg (28.0-32.0); Mean Corpuscular Volume 86.3 fL (80.0-100.0); Nucleated Red Blood Cells % 0.1 %
[2025-08-24 07:28] LABS: Anion Gap 16 (5-15); Calcium 8.9 mg/dL (8.7-10.4); Carbon Dioxide 21 mmol/L (20-31); Chloride 105 mmol/L (98-107); Potassium 3.6 mmol/L (3.5-5.1); Sodium 142 mmol/L (136-145)
[2025-08-24 07:34] LABS: BUN/Creatinine Ratio 10.5 (10.0-20.0); Magnesium 2.0 mg/dL (1.6-2.6)
[2025-08-24 07:39] LABS: Blood Urea Nitrogen 6 mg/dL (9-23); Glucose 220 mg/dL (74-106)
[2025-08-24] MEDS: PANTOPRAZOLE 40 MG/10 ML VIAL INJ IV SCH (08:43)
[2025-08-24] MEDS ORDERED: METOCLOPRAMIDE HCL 5MG/ml INJ 2ml VIAL IV PRN (10:30)
--- NOTE | 2025-08-24 11:18 | DVH ---
Date: 08/24/2025 10:32 AM Examination: XY KUB ABDOMEN SINGLE VIEW History: r/o obs Comparison: None TECHNIQUE: Frontal views of the abdomen was obtained. FINDINGS: Bowel gas pattern is unremarkable. The lung bases are unremarkable. No acute osseous abnormality identified. IMPRESSION: Nonobstructive bowel gas pattern. Large stool burden.
[2025-08-24] MEDS: METOCLOPRAMIDE HCL 5MG/ml INJ 2ml VIAL IV ONE (11:57)
--- NOTE | 2025-08-24 13:18 | DVH ---
Technique: Real-time ultrasound imaging of the abdomen was performed with grayscale and color Doppler . Indication: gbus Comparison: None Findings: Liver measures 14.4 cm. It is unremarkable in echogenicity and echotexture without focal mass. Opal l vein is normal in caliber and demonstrates normal hepatopetal flow. Gallbladder demonstrates no evidence for cholelithiasis. There is no pericholecystic fluid. The wall thickness is normal. The common bile duct measures 3 mm. No intrahepatic biliary ductal dilatation. The right kidney measures 13.2 cm. The left kidney measures 10.5 cm. Moderate left hydronephrosis. Le ft ureteral jet nonvisualized. Bladder volume 353 cc The visualized portion of the pancreas is unremarkable. Impression: No evidence for cholelithiasis. Moderate left hydronephrosis. Left ureteral jet nonvisualized. Recommend CT abdomen pelvis to further characterize.
[2025-08-25] VITALS (8 sets, daily range): BP systolic 109–136; BP diastolic 76–92; PULSE 97–102; RESP 17–20; TEMP 98–98.3; O2SAT 98–100
[2025-08-25] MEDS: DOCUSATE SOD 100 MG CAP PO SCH (01:12)
[2025-08-25 05:04] LABS: Hematocrit 34.8 % (36.0-46.0); Hemoglobin 11.7 g/dL (12.2-16.2); Mean Corpuscular Hemoglobin 28.9 pg (28.0-32.0); Mean Corpuscular Volume 85.7 fL (80.0-100.0); Nucleated Red Blood Cells % 0.1 %
[2025-08-25 05:23] LABS: Chloride 102 mmol/L (98-107); Sodium 139 mmol/L (136-145)
[2025-08-25 05:24] LABS: Anion Gap 10 (5-15); Calcium 8.7 mg/dL (8.7-10.4); Carbon Dioxide 27 mmol/L (20-31)
[2025-08-25 05:29] LABS: BUN/Creatinine Ratio 9.4 (10.0-20.0); Blood Urea Nitrogen < 5 mg/dL (9-23); Glucose 237 mg/dL (74-106); Potassium 3.1 mmol/L (3.5-5.1)
[2025-08-25] MEDS: POLYETHYLENE GLYCOL 17 GM PWDR PO SCH (09:38)
--- NOTE | 2025-08-25 10:13 | DVH ---
CLINICAL HISTORY: R/O STONE TECHNIQUE: CT of the abdomen and pelvis was performed without IV contrast. This exam was performed ac cording to our departmental dose optimization program. Up-to-date CT equipment and radiation dose red uction techniques are utilized as appropriate. CTDI 5.1 DLP 265 COMPARISON: None FINDINGS: Abdomen/Pelvis: The spleen, pancreas, gallbladder, liver, kidneys, and uterus are unremarkable. The bladder is moderately distended with mild wall thickening. The abdominal aorta is normal in course and caliber. There are no significant atherosclerotic calcifi cations. There is no free intraperitoneal air or fluid. There is no enlarged abdominal pelvic lymph node. There is no bowel wall thickening or dilatation. The appendix is normal. There is a moderate amount o f stool within the proximal / mid colon. Other: The imaged lower thorax demonstrates very miniscule bilateral pleural effusions. There is a band of l eft basilar atelectasis. No acute osseous abnormality is evident. Impression: No acute noncontrast CT abnormality in the abdomen or pelvis. Moderately distended bladder with mild wall thickening. Please correlate with urinalysis for infectio n. Very miniscule bilateral pleural effusions.
--- NOTE | 2025-08-25 11:09 | DVHPN2 ---
Assessment/Plan Assessment/Plan progress note 19 yo F with type 1 DM on treciba and Humalog admitted for DKA. patient with N/V, denies travels, denies eating anything out of the ordinary. also has chest pain reproducible to touch and abdominal epigastric pain. seen today, improved, no diarrhea, but vomiting and nausea still persists, adding reglan. kub wnl, large stool burden, giving bowel reg. clear liq diet. c/w current insulin, cover with ceft flagyl. RUQUS physical exam aox4, drowsy clear breath sounds s1 s2 tachycardic chest tender to palpation abdomen soft, epigastric tenderness no LE edema labs, ekg imaging reviewed assessment and plan DKA type 1 DM chest pain likely costochondritis N/V w abdominal pain likely viral or noninfectious gastroenteritis dc insulin drip IV bolus lantus 30 BID lispro w sliding scale telemetry follow urine culture stool wbc Toradol RUQUS ceft and flagyl diet clear dvt ppx hold full code Plan discussed with: Patient My Orders Orders - GISELL MEYER MD Procedure Category Date Status Time * Theatre Arts Professor CONS 08/23/25 Transmitted Consult Acetaminophen Tablet PHA 08/23/25 In Process (Tylenol Tablet) 18:15 Hydromorphone Hcl Inj PHA 08/23/25 In Process (Dilaudid Injectio 19:15 Ceftriaxone 1gm/50ml PHA 08/25/25 In Process (Rocephin) 09:00 Metronidazole PHA 08/24/25 In Process 500mg/100ml (Flagyl 14:00 Metoclopramide PHA 08/24/25 In Process Injection (Reglan 10:30 Kub Abdomen Single XY 08/24/25 Resulted View 10:25 Date of Service: Aug 24, 2025 Billing Provider: GISELL MEYER MD Common Visit Codes: [id number] INP/OBS CARE(HIGH) GISELL MEYER MD Aug 24, 2025 11:36
[2025-08-26] VITALS (8 sets, daily range): BP systolic 105–121; BP diastolic 67–86; PULSE 56–105; RESP 17–18; TEMP 97–98.9; O2SAT 98–100
[2025-08-26] MEDS ORDERED: HYDROmorphone HCL 2 MG/ML VL/or syr IV PRN (12:30)
[2025-08-26] MEDS: HYDROMORPHONE HCL 1 MG/ML INJ IV PRN (16:35)
[2025-08-27] VITALS (7 sets, daily range): BP systolic 93–167; BP diastolic 45–94; PULSE 91–113; RESP 17–20; TEMP 36.2; O2SAT 95–100
--- NOTE | 2025-08-27 12:31 | DVHPN2 ---
Reviewed: Care Plan, Labs, Medications Changes from previous H/P or p: No Changes General: Per HPI Objective Vitals Vital Signs Date Time Temp Pulse Resp B/P (MAP) Pulse Ox O2 Delivery O2 Flow Rate FiO2 08/27/25 12:27 107 20 125/94 08/27/25 08:50 97.9 95 97.9 08/27/25 08:00 Room Air* 0 21 Intake/Output Intake and Output 08/27/25 07:00 Intake Total 1850 ml Balance 1850 ml Intake Oral 1600 ml IV Total 250 ml # Voids 5 # Bowel Movements 2 General Appearance: Alert, Oriented X3, Cooperative Cardiovascular: Regular rate, Normal S1, Normal S2 Medications Current Medications Medications Dose Ordered Sig/Kashif Route Start Time Stop Time Status Last Admin Dose Admin Dextrose 50 ml UD PRN IV 08/22/25 22:30 Ondansetron HCl 4 mg Q4HP PRN IV 08/23/25 00:00 08/25/25 18:52 4 MG Insulin Glargine 30 units BID@0700,2200 OK 08/23/25 22:00 08/26/25 21:51 30 UNITS Insulin Human Lispro 5 units AC SC 08/23/25 11:30 08/27/25 12:26 5 UNITS Insulin Human Lispro AC SC 08/23/25 11:30 08/27/25 12:27 8 UNITS Ketorolac Tromethamine 30 mg Q6HPRN PRN IV 08/23/25 10:15 08/28/25 10:14 08/27/25 08:10 30 MG Pantoprazole Sodium 40 mg DAILY IV 08/24/25 10:00 08/27/25 08:09 40 MG Al Hydrox/Mg Hydrox/Simethicone 30 ml Q6HR PO 08/23/25 12:00 08/27/25 12:27 30 ML Sodium Chloride 1,000 ml @ 100 mls/hr Q10H IV 08/23/25 10:15 08/26/25 17:04 100 MLS/HR Acetaminophen 650 mg Q4HP PRN PO 08/23/25 18:15 Ceftriaxone Sodium 50 ml @ 100 mls/hr DAILY@09 IV 08/25/25 09:00 08/27/25 08:10 100 MLS/HR Metronidazole 100 ml @ 100 mls/hr Q8HR IV 08/24/25 14:00 08/27/25 06:45 100 MLS/HR Metoclopramide HCl 5 mg Q8HPRN PRN IV 08/24/25 10:30 Polyethylene Glycol 17 gm DAILY PO 08/25/25 10:00 08/27/25 08:10 17 GM Docusate Sodium 100 mg BID PO 08/24/25 23:45 08/27/25 08:10 100 MG Hydromorphone HCl 0.25 mg Q6HP PRN IV 08/26/25 12:30 08/27/25 12:27 0.25 MG Hydromorphone HCl 0.25 mg Q6HP PRN IV 08/26/25 12:30 UNV Laboratory Results Laboratory Tests 08/25/25 04:22 Urinalysis Test 08/22/25 21:14 Urine Color Light-yellow (Yellow) Urine Clarity Clear (Clear) Urine pH 5.0 (5.0-9.0) Urine Specific [place] 1.034 (1.001-1.035) Urine Protein Trace (Negative) H Urine Ketones 4+ (Negative) H Urine Blood Negative /uL (Negative) Urine Nitrite Negative (Negative) Urine Bilirubin Negative (Negative) Urine Urobilinogen Normal mg/dL (Negative) Urine Leukocyte Esterase Negative /uL (Negative) Urine RBC 2 /hpf (0 - 4) Urine Microscopic WBC 1 /HPF (0-5) Urine Squamous Epithelial Cells Mod /hpf (<5) Urine Bacteria None seen /hpf (None Seen) Urine Mucus Few (None Seen) Urine Yeast (Budding) Occasional /hpf (None Urine Glucose 4+ mg/dL (Normal) H Urine Test Negative (Negative) Labs and/or images reviewed: Labs reviewed by me, Image(s) reviewed by me Assessment/Plan Assessment/Plan 19 yo F with type 1 DM on treciba and Humalog admitted for DKA. patient with N/V, denies travels, denies eating anything out of the ordinary. also has chest pain reproducible to touch and abdominal epigastric pain. seen today, improved, no diarrhea, but vomiting and nausea still persists, adding reglan. kub wnl, large stool burden, giving bowel reg. clear liq diet. c/w current insulin, cover with ceft flagyl. RUQUS physical exam aox4, drowsy clear breath sounds s1 s2 tachycardic chest tender to palpation abdomen soft, epigastric tenderness no LE edema labs, ekg imaging reviewed assessment and plan DKA type 1 DM chest pain likely costochondritis N/V w abdominal pain likely viral or noninfectious gastroenteritis dc insulin drip IV bolus lantus 30 BID lispro w sliding scale telemetry follow urine culture stool wbc Toradol RUQUS ceft and flagyl diet clear dvt ppx hold full code Plan discussed with: Patient My Orders Orders - TIMOTHY PRITCHETT DO Procedure Category Date Status Time Electrocardigram EKG 08/27/25 Logged 12:13 Chest Xray 1 View XY 08/27/25 Taken 12:17 Date of Service: Aug 26, 2025 Billing Provider: TIMOTHY PRITCHETT DO Common Visit Codes: [id number] INP/OBS CARE(HIGH) TIMOHTY PRITCHETT DO Aug 27, 2025 12:31
[2025-08-27] MEDS ORDERED: LEVO500T91 PO (12:32)
--- NOTE | 2025-08-27 12:34 | DVHDS2 ---
Discharge Summary Date of Admission Aug 22, 2025 at 23:56 Date of Discharge: Aug 27, 2025 Labs/Diagnostic Data: Laboratory Results Test 08/27/25 10:59 08/25/25 04:22 08/24/25 06:26 08/23/25 04:48 POC Glucose 312 mg/dl (70-106) White Blood Count 6.6 10^3/uL (4.4-10.8) Red Blood Count 4.06 10^6/uL (4.0-5.20) Hemoglobin 11.7 g/dL (12.2-16.2) Hematocrit 34.8 % (36.0-46.0) Mean Corpuscular Volume 85.7 fL (80.0-100.0) Mean Corpuscular Hemoglobin 28.9 pg (28.0-32.0) Mean Corpuscular Hemoglobin Concent 33.8 g/dL (32.0-36.0) Red Cell Distribution Width 13.4 % (11.8-14.3) Platelet Count 323 10^3/uL (140-450) Mean Platelet Volume 8.2 fL (6.9-10.8) Neutrophils (%) (Auto) 43.0 % (37.0-80.0) Lymphocytes (%) (Auto) 43.6 % (10.0-50.0) Monocytes (%) (Auto) 11.8 % (0.0-12.0) Eosinophils (%) (Auto) 1.1 % (0.0-7.0) Basophils (%) (Auto) 0.5 % (0.0-2.0) Neutrophils # (Auto) 2.8 10 ^3/uL (1.6-8.6) Lymphocytes # (Auto) 2.9 10 ^3/uL (0.4-5.4) Monocytes # (Auto) 0.8 10 ^3/uL (0-1.3) Eosinophils # (Auto) 0.1 10 ^3/uL (0-0.8) Basophils # (Auto) 0 10 ^3/uL (0-0.2) Nucleated Red Blood Cells 0.1 % Sodium Level 139 mmol/L (136-145) Potassium Level 3.1 mmol/L (3.5-5.1) Chloride Level 102 mmol/L (98-107) Carbon Dioxide Level 27 mmol/L (20-31) Anion Gap 10 (5-15) Blood Urea Nitrogen < 5 mg/dL (9-23) Creatinine 0.53 mg/dL (0.550-1.02) Glomerular Filtration Rate Calc 137 mL/min (>90) BUN/Creatinine Ratio 9.4 (10.0-20.0) Serum Glucose 237 mg/dL (74-106) Calcium Level 8.7 mg/dL (8.7-10.4) Lactic Acid Level 1.0 mmol/L (0.4-2.0) Phosphorus Level 2.5 mg/dL (2.4-5.1) Magnesium Level 2.0 mg/dL (1.6-2.6) Total Bilirubin 0.2 mg/dL (0.2-1.0) Aspartate Amino Transferase (AST) 20 U/L (13-40) Alanine Aminotransferase (ALT) 12 U/L (7-40) Alkaline Phosphatase 107 U/L (46-116) Total Protein 7.8 g/dL (5.7-8.2) Albumin 4.5 g/dL (3.2-4.8) Beta-Hydroxybutyric Acid > 4.500 mmol/L (< 0.4) Test 08/22/25 21:14 08/22/25 20:32 Urine Color Light-yellow (Yellow) Urine Clarity Clear (Clear) Urine pH 5.0 (5.0-9.0) Urine Specific [place] 1.034 (1.001-1.035) Urine Protein Trace (Negative) Urine Ketones 4+ (Negative) Urine Blood Negative /uL (Negative) Urine Nitrite Negative (Negative) Urine Bilirubin Negative (Negative) Urine Urobilinogen Normal mg/dL (Negative) Urine Leukocyte Esterase Negative /uL (Negative) Urine RBC 2 /hpf (0 - 4) Urine Microscopic WBC 1 /HPF (0-5) Urine Squamous Epithelial Cells Mod /hpf (<5) Urine Bacteria None seen /hpf (None Seen) Urine Mucus Few (None Seen) Urine Yeast (Budding) Occasional /hpf (None Urine Glucose 4+ mg/dL (Normal) Urine Test Negative (Negative) Blood Gas Specimen Type Arterial Blood Gas Sample Site Right brachial Blood Gas Patient Temperature 37.0 Arterial Blood Date Drawn Arterial Blood pH 7.321 (7.350-7.450) Arterial Blood Partial Pressure CO2 28.5 mmHg (32.0-45.0) Arterial Blood Partial Pressure O2 92.1 mmHg (83.0-108.0) Arterial Blood HCO3 14.4 mmol/L (21.0-28.0) Arterial Blood Oxygen Saturation 96.5 % (94.0-98.0) Arterial Blood Base Excess -10.0 mmol/L (-2.0-3.0) Arterial Blood Oxyhemoglobin 95.2 % (94.0-98.0) Arterial Blood Carboxyhemoglobin 0.6 % (0.5-1.5) Arterial Blood Methemoglobin 0.7 % (0.0-1.5) Luke Test N/a Blood Gas Total Hemoglobin 15.80 g/dL (12.0-16.0) Blood Gas Modality Room air FiO2 % 21.0 Other Laboratory Tests 08/25/25 04:22 Brief Hx & Hospital Course: 19 yo F with type 1 DM on treciba and Humalog admitted for DKA. patient with N/V, denies travels, denies eating anything out of the ordinary. also has chest pain reproducible to touch and abdominal epigastric pain. seen today, improved, no diarrhea, but vomiting and nausea still persists, adding reglan. kub wnl, large stool burden, giving bowel reg. clear liq diet. c/w current insulin, cover with ceft flagyl. RUQUS physical exam aox4, drowsy clear breath sounds s1 s2 tachycardic chest tender to palpation abdomen soft, epigastric tenderness no LE edema labs, ekg imaging reviewed assessment and plan DKA type 1 DM chest pain likely costochondritis N/V w abdominal pain likely viral or noninfectious gastroenteritis dc insulin drip IV bolus lantus 30 BID lispro w sliding scale telemetry follow urine culture stool wbc Toradol RUQUS ceft and flagyl diet clear dvt ppx hold full code discharged to home with levofloxacin 500mg daily x 7 days Condition at Discharge: Fair Final Diagnosis/Problems List see above Discharge Disposition: Home Discharge Instruct/Medications Diet: Cardiac 2g Na,low cholest Activity: No Restrictions, As Tolerated Scheduled Levofloxacin Hemihydrate (Levofloxacin), 1 TAB PO DAILY Discharge Statement: "Patient was advised to return to the ER or call 911 if any headaches, dizziness, shortness of breath, chest pain, abdominal pain, bleeding, fevers, or worsening of medical condition. Patient was counseled about treatment plan, medications, possible side effects, patientverbalized understanding. All questions were answered to the best of my ability. This discharge took greater then 30 minutes in planning, reviewing documentation, counseling the patient, and discussing with other team members." ASSESSMENT ASSESSMENT Assessment Date of Service: Aug 27, 2025 Billing Provider: TIMOTHY PRITCHETT DO Common Visit Codes: [id number] DISCH DAY >30min TIMOTHY PRITCHETT DO Aug 27, 2025 12:34
--- NOTE | 2025-08-27 12:47 | DVH ---
CHEST RADIOGRAPH Indication: chest pain Technique: Single frontal view of the chest was obtained Comparison: None FINDINGS: Lines and Tubes: None Lungs: No focal consolidation. Pleura: No effusion. No pneumothorax. Cardiomediastinal contours: Unremarkable Bones: No acute osseous abnormality. IMPRESSION: 1. No acute cardiopulmonary disease.
[2025-08-27] MEDS: HYDROmorphone HCL 2 MG/ML VL/or syr IM ONE (13:16)
== END 2025-08-27 16:43 | disposition home or self-care (01) | DRG 249 ==
LOC: EDBD 19:41 → ER 19:41 → OVERFLOW 23:56 → TELE-CENTR 08-23 16:03
PROVIDERS: ADMIT Internal Medicine; ATTEND Internal Medicine
DX: A08.4 Viral intestinal infection, unspecified (principal); E10.10 Type 1 diabetes mellitus with ketoacidosis without coma; E86.0 Dehydration; M94.0 Chondrocostal junction syndrome [Tietze]; N13.30 Unspecified hydronephrosis; Z79.4 Long term (current) use of insulin; Z91.018 Allergy to other foods
CPT/HCPCS: 36415; 36600; 71045; 74018; 74176; 76705; 80048; 80053; 81001; 81025; 82010; 82805; 82962; 83605; 83735; 84100; 85025; 93005; 96374; 99291; G0378; J1815; J1885; J2405; J2470; J3490